=== PATIENT | female | born 1950 | race Caucasian/White ===

== ENCOUNTER → 2020-01-31 | Outpatient (CLI) | payer MEDICARE ==
[~2020-01-31] MED LIST: ACET325T9 PO; ALPR0.254 PO; AMLO5TAB10 PO; ASPI81TA59 PO; ATEN25TA42 PO; ATOR20TA58 PO; CALC-71 PO; FAMO20TA5 PO; GUAI600T47 PO; MULT-121 PO
== END | disposition home or self-care (01) ==
LOC: LAB 14:38
PROVIDERS: ATTEND Registered Nurse
DX: Z01.818 Encounter for other preprocedural examination (principal); Z11.59 Encounter for screening for other viral diseases; R13.10 Dysphagia, unspecified
CPT/HCPCS: U0003-CS

== ENCOUNTER → 2020-02-04 | Day surgery (SDC) | payer MEDICARE ==
[~2020-02-04] MED LIST changes: +IPRATRPIUM/ALBUTEROL 0.5/2.5MG 3 ML NEBU. NEB PRN; +IV RINGERS SOLUTION,LACTATED 1,000 ML IV SCH; +MIDAZOLAM HCL PF 2 MG/2 ML VIAL. IV ONE; +ONDANSETRON PF 4 MG/2 ML VIAL. IV PRN; +PROPOFOL 10,000 MCG/ML (20ML) VIAL IV ONE
[2020-02-04 11:31] VITALS: BP 126/72
--- NOTE | 2020-02-06 14:11 | PATHOLOGY ---
[facility] Accession Number: [id number] . 01 Material submitted: . PART A: stomach - GASTRIC BX PART B: esophagus - DISTAL ESOPHAGUS. Modifiers: distal . 01 Clinical history: . A. DX GASTRITIS B. REFLUX . 02 Diagnosis: A. Gastric biopsies: - Chronic gastritis, mild. . B. Esophageal biopsies, distal esophagus: - Reflux esophagitis. (JPM:lurdes; 02/06/2020) QMS 02/06/2020 1032 Local . 02 Comment: Sections of the gastric biopsy reveal segments of gastric antral and antral/body transition mucosa showing congestion and mild chronic inflammation. There is fibrosis of the superficial lamina propria. A properly controlled immunoperoxidase stain for Helicobacter is negative for Helicobacter organisms. . Sections of the distal esophageal biopsy reveal segments of tangentially oriented hyperplastic squamous esophageal mucosa consistent with reflux esophagitis. There is no evidence of Barretts's change, dysplasia, or malignancy. (JPM:lurdes; 02/06/2020) . Special stain performed: Immunoperoxidase stain for Helicobacter on A1 . 02 Electronically signed: . Haroldo Thomason MD, Pathologist NPI- [id number] . 01 Gross description: . A. The specimen is received in formalin, labeled "Cornellman, Symone, gastric BX gastritis" and consists of 2 fragments of pink-abad tissue measuring 0.4 x 0.3 cm and 0.5 x 0.3 cm which are entirely submitted in A1. . B. The specimen is received in formalin, labeled "Zillman, Symone, distal esophagus" and consists of a translucent fragment of pink tissue measuring 0.8 x 0.3 x 0.1 cm which is entirely submitted in B1. (SDY; 02/05/2020) SYU/SYU 02/05/[address] [place] [address] . 02 Pathologist provided ICD-10: K29.50, K21.0 . 02 CPT . 178323, 614503, [id number] Specimen Comment: A courtesy copy of this report has been sent to [phone] Specimen Comment: [id number] Specimen Comment: Report sent to / DR HAYNES Performed at: 01 [facility] [address], [place] [id number] MD Kris Bergeron MD Phone: [phone] Performed at: 02 [facility] [address] [place], [place] [id number] MD Haroldo Thomason MD Phone: [phone]
== END | disposition home or self-care (01) ==
LOC: SURG 09:06
PROVIDERS: ATTEND Emergency Medicine
DX: R13.10 Dysphagia, unspecified (principal); K22.2 Esophageal obstruction; K21.0 Gastro-esophageal reflux disease with esophagitis; K29.50 Unspecified chronic gastritis without bleeding; K31.89 Other diseases of stomach and duodenum; K44.9 Diaphragmatic hernia without obstruction or gangrene; I25.2 Old myocardial infarction; M19.90 Unspecified osteoarthritis, unspecified site; Z79.82 Long term (current) use of aspirin; Z79.899 Other long term (current) drug therapy; Z95.0 Presence of cardiac pacemaker; Z98.890 Other specified postprocedural states; Z88.1 Allergy status to other antibiotic agents
CPT/HCPCS: 43239; 43450; J2704; J7120